=== PATIENT | male | born 1985 ===

== ENCOUNTER 2017-12-09 21:19 | Emergency (ER) | payer SELFPAY ==
[2017-12-09] MEDS ORDERED: Ondansetron PF 4 MG/2 ML Vial ONE (21:32)
[2017-12-09] MEDS ORDERED: Adacel (T-DAP) 0.5 ML VIAL ONE (21:32)
[2017-12-09] MEDS ORDERED: Fentanyl 100 MCG/2 ML VIAL ONE ×2 (21:32→22:14)
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
[2017-12-09] MEDS ORDERED: Ketorolac Tromethamine 30 MG/ML VIAL ONE (22:14)
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
== END 2017-12-10 03:15 | disposition home or self-care (01) ==
LOC: MADERS 21:19
DX: S51.012A Laceration without foreign body of left elbow, initial encounter (principal); S61.211A Laceration without foreign body of left index finger without damage to nail, initial encounter; R07.81 Pleurodynia; I10 Essential (primary) hypertension; F17.210 Nicotine dependence, cigarettes, uncomplicated; V49.9XXA Car occupant (driver) (passenger) injured in unspecified traffic accident, initial encounter
CPT/HCPCS: 12001; 71045; 72125; 90471; 90715; 96374; 96375; 96376; G0390; J1885; J2405; J3010